=== PATIENT | female | born 1970 | race Caucasian/White ===

== ENCOUNTER 2018-08-28 02:35 | Emergency (ER) | payer MEDICAID, OTHER ==
[~2018-08-28] VITALS: Ht 177.8 cm; Wt 72.6 kg
[~2018-08-28 02:35] MED LIST: OXCA300T4 PO; VENL75TA4 PO
--- NOTE | 2018-08-28 03:00 | NUR ---
PATIENT CAME INTO ER VIA WHEELCHAIR FOR C/O LLE REDNESS,SWELLING,HOT AND PAINFUL AREA X1 WEEK
[2018-08-28] MEDS ORDERED: LORAZEPAM 0.5 MG TABLET PO ONE (03:15)
[2018-08-28] MEDS ORDERED: CEFTRIAXONE 1 G VIAL IM ONE (03:15)
[2018-08-28] MEDS ORDERED: SODIUM BICARBONATE 4.2 % (NEUT) 5 ML VIAL TP ONE (03:15)
[2018-08-28] MEDS ORDERED: SULFAMETH/TRIMETH 800/160 MG TABLET PO ONE (03:15)
[2018-08-28] MEDS ORDERED: LIDOCAINE 1%-EPI 1:100,000 20 ML VIAL TP ONE (03:15)
[2018-08-28] MEDS ORDERED: HYDROMORPHONE 1 MG/1 ML DISP.SYRIN IM ONE (03:15)
[2018-08-28] MEDS ORDERED: LORAZEPAM 1 MG TABLET ONE (03:21)
[2018-08-28] MEDS ORDERED: LIDOCAINE HCL 1% 20 ML VIAL ONE (03:21)
[2018-08-28] MEDS ORDERED: HYDROMORPHONE 2 MG/1 ML DISP.SYRIN ONE (03:21)
[2018-08-28] MEDS ORDERED: SULFAMETH/TRIMETH 800/160 MG TABLET ONE (03:22)
[2018-08-28] MEDS ORDERED: CEFTRIAXONE 1 G VIAL ONE (03:22)
--- NOTE | 2018-08-28 04:15 | NUR ---
DR LOPEZ INTO DO I/D ON LLE
[2018-08-28] MEDS ORDERED: FLUCONAZOLE 100 MG TABLET ONE (04:27)
[2018-08-28] MEDS ORDERED: FLUCONAZOLE 100 MG TABLET PO ONE (04:30)
--- NOTE | 2018-08-28 04:33 | NUR ---
Patient discharged to home in stable conditon WITH FAMILY TAKING PATIENT HOME. Written and verbal after care instructions given. Patient verbalizes understanding of instructions.
[2018-08-28 04:38] VITALS: BP 124/75
== END 2018-08-28 04:39 | disposition home or self-care (01) ==
LOC: ER 02:37
DX: L02.416 Cutaneous abscess of left lower limb (principal); F15.10 Other stimulant abuse, uncomplicated; F11.10 Opioid abuse, uncomplicated; G89.29 Other chronic pain; M54.5 Low back pain; F17.290 Nicotine dependence, other tobacco product, uncomplicated; Z71.6 Tobacco abuse counseling; Z79.899 Other long term (current) drug therapy
CPT/HCPCS: 10060; 96372 ×2; 99284; 99406; J0696; J1170; J3490 ×3; A4663

== ENCOUNTER 2018-08-29 20:48 | Emergency (ER) | payer OTHER ==
[~2018-08-29] VITALS: Ht 177.8 cm; Wt 72.6 kg
--- NOTE | 2018-08-29 21:25 | NUR ---
Patient ambulated with stable gait. AAOx4. Speech is clear, speaks in complete sentences. No neuro deficits. Patient came in for repack of wound in E. Patient was here night/friday morning to have it initially evaluated. Respiratory even and unlabored. Patient in bed at lowest position, side rails upx2, call light within reach. Fall precautions implemented per protocol.
--- NOTE | 2018-08-29 22:14 | NUR ---
Patient given written and verbal discharge instructions. Patient verbalizes understanding of instructions. Patient is ambulatory with stable gait. Refuses offer of half-way placement. Patient given list of available shelters in surrounding area.
== END 2018-08-29 22:16 | disposition home or self-care (01) ==
LOC: ER 20:49
DX: L02.415 Cutaneous abscess of right lower limb (principal); F17.200 Nicotine dependence, unspecified, uncomplicated; F11.10 Opioid abuse, uncomplicated; Z59.0 Homelessness; Z79.899 Other long term (current) drug therapy
CPT/HCPCS: A4663

== ENCOUNTER 2019-01-12 21:14 | Emergency (ER) | payer OTHER ==
[~2019-01-12] VITALS: Ht 180.3 cm; Wt 74.8 kg
--- NOTE | 2019-01-12 21:21 | NUR ---
PT RECEIVED AMBULATORY WITH ANTALGIC GAIT FROM HOME C/O LEFT LEG AND LOWER BACK AND L HIP PAIN FOR 2WKS PT DENIES FALLING DENIES TRAUMA DENIES PREV SURGERY TO THE SITE, +HX OF BACK AND NECK PAIN CHIROPRACTOR VISIT LAST WEEK DID NOT HELP. MARIO DID NOT HELP PT AOX4, ABLE TO SPEAK CLEAR AND COMPLETE SENTENCES, DENIES CARDIORESPIRATORY DISTRESS, DENIES CHANGES IN B/B FUNCTION PT MD RENARD AT BEDSIDE FOR HX AND PHYSICAL. PT SITTING ON BED, KEPT WARM SAFE DRY AND COMFORTABLE
[2019-01-12] MEDS ORDERED: ONDANSETRON 4 MG/2 ML VIAL IM ONE (21:45)
[2019-01-12] MEDS ORDERED: HYDROMORPHONE 1 MG/1 ML DISP.SYRIN IM ONE (21:45)
[2019-01-12] MEDS ORDERED: ONDANSETRON 4 MG/2 ML VIAL ONE (21:51)
[2019-01-12] MEDS ORDERED: HYDROMORPHONE 1 MG/1 ML DISP.SYRIN ONE (21:51)
--- NOTE | 2019-01-12 22:06 | NUR ---
PT REPORTS GREAT IMPROVEMENT AFTER RX MEDS. Patient discharged to home in stable conditon. Written and verbal after care instructions given. Patient verbalizes understanding of instructions. ALL BELONGINGS WITH PT AMBULATORY WITH ANTALGIC GAIT
[2019-01-12 22:08] VITALS: BP 114/78
== END 2019-01-12 22:06 | disposition home or self-care (01) ==
LOC: ER 21:14
DX: M54.42 Lumbago with sciatica, left side (principal); F11.10 Opioid abuse, uncomplicated; F17.200 Nicotine dependence, unspecified, uncomplicated; Z59.0 Homelessness
CPT/HCPCS: 96372; 99283; J1170; J2405; A4663

== ENCOUNTER 2020-01-18 02:17 | Emergency (ER) | payer OTHER ==
[~2020-01-18] VITALS: Ht 177.8 cm; Wt 79.4 kg
--- NOTE | 2020-01-18 02:58 | NUR ---
at bedside for MSE
[2020-01-18] MEDS ORDERED: PROMETHAZINE/CODEINE 5 ML UDC PO ONE (03:00)
--- NOTE | 2020-01-18 03:27 | NUR ---
X-ray tech noted doing x-ray of head at this time
--- NOTE | 2020-01-18 04:05 | NUR ---
Patient noted resting in bed with eyes closed, no facial cues of pain noted, no signs of distress noted
[2020-01-18] MEDS: SULFAMETH/TRIMETH 800/160 MG TABLET PO ONE (04:48)
[2020-01-18] MEDS: HYDROCODONE/APAP 5-325MG TABLET PO ONE (04:48)
[2020-01-18] MEDS ORDERED: SULFAMETH/TRIMETH 800/160 MG TABLET ONE (04:51)
[2020-01-18] MEDS ORDERED: HYDROCODONE/APAP 5-325MG TABLET ONE (04:51)
--- NOTE | 2020-01-18 05:11 | NUR ---
Patient discharged to home in stable condition. Ambulated with steady gait, Rx given, states bf will drive her home. Written and verbal after care instructions given. Instructed to follow up with plastic surgeon. Patient verbalizes understanding of instructions. Stressed follow up or return to ER for worsening s/s
[2020-01-18 05:15] VITALS: BP 165/86
[2020-01-21] MEDS ORDERED: hydrALAZINE HCL 20 MG/1 ML VIAL IV ONE (07:45)
== END 2020-01-18 05:19 | disposition home or self-care (01) ==
LOC: ER 02:26
DX: S00.85XA Superficial foreign body of other part of head, initial encounter (principal); V49.9XXA Car occupant (driver) (passenger) injured in unspecified traffic accident, initial encounter; Y92.89 Other specified places as the place of occurrence of the external cause; Z59.0 Homelessness; F17.200 Nicotine dependence, unspecified, uncomplicated
CPT/HCPCS: 70150; A4663

== ENCOUNTER 2022-05-17 20:31 | Emergency (ER) | END 2022-05-17 21:14 | disposition home or self-care (01) | DX: L01.00 Impetigo, unspecified (principal); F17.200 Nicotine dependence, unspecified, uncomplicated; F31.9 Bipolar disorder, unspecified; Z86.19 Personal history of other infectious and parasitic diseases ==

== ENCOUNTER 2023-09-19 03:52 | Emergency (ER) | payer OTHER ==
[~2023-09-19] VITALS: Ht 177.8 cm; Wt 83.9 kg
[~2023-09-19 03:52] MED LIST changes: -OXCA300T4 PO; +SULF1TAB48 PO; -VENL75TA4 PO
[2023-09-19] MEDS ORDERED: KETOROLAC TROMETHAMINE 30 MG INJ ONE (04:47)
[2023-09-19] MEDS ORDERED: CYCLOBENZAPRINE HCL 10 MG TABLET ONE (04:47)
[2023-09-19] MEDS: CYCLOBENZAPRINE HCL 10 MG TABLET PO ONE (04:50)
[2023-09-19] MEDS: KETOROLAC TROMETHAMINE 30 MG INJ IM ONE (04:50)
[2023-09-19] MEDS ORDERED: NAPR-1009 PO (05:56)
[2023-09-19] MEDS ORDERED: CYCL10TA9 PO (05:56)
[2023-09-19 06:12] VITALS: BP 147/80; TEMP 98.2; O2SAT 98
== END 2023-09-19 06:00 | disposition home or self-care (01) ==
LOC: ER 04:00
DX: G89.29 Other chronic pain (principal); M54.50 Low back pain, unspecified; M54.2 Cervicalgia; M25.552 Pain in left hip; F17.200 Nicotine dependence, unspecified, uncomplicated; R03.0 Elevated blood-pressure reading, without diagnosis of hypertension; Z79.899 Other long term (current) drug therapy
CPT/HCPCS: 99283; 96372; J1885; A4606; A4663

== ENCOUNTER 2024-08-08 10:07 | Emergency (ER) | payer OTHER ==
[~2024-08-08] VITALS: Ht 177.8 cm; Wt 79.4 kg
[~2024-08-08 10:07] MED LIST changes: +CYCL10TA9 PO; +NAPR-1009 PO
[2024-08-08] MEDS ORDERED: CEFAZOLIN 1 G VIAL ONE (11:11)
[2024-08-08 11:13] LABS: CALCIUM 9.1 mg/dL (8.5-10.1); CREATININE 0.9 mg/dL (0.6-1.3); POTASSIUM 4.1 mmol/L (3.5-5.1)
[2024-08-08 11:19] LABS: ALBUMIN 3.3 g/dL (3.4-5.0); BILIRUBIN,DIRECT 0.2 mg/dL (0.0-0.2); BILIRUBIN,TOTAL 0.4 mg/dL (0.2-1.0); TOTAL PROTEIN, SERUM 8.1 g/dL (6.4-8.2)
[2024-08-08] MEDS: CEFAZOLIN 1 G in IV DEXTROSE 5% 50 ML IV ONE (11:19)
[2024-08-08 11:27] LABS: BASOPHILS % (AUTO) 0.4 % (0.0-2.0); DIFFERENTIAL COMMENT 0; EOSINOPHILS # (AUTO) 0.1 K/uL (0.0-0.7); EOSINOPHILS % (AUTO) 1.2 % (0.0-7.0); HEMATOCRIT 37.9 % (31.2-41.9); HEMOGLOBIN 11.2 g/dL (10.9-14.3); LYMPHOCYTES # (AUTO) 1.9 K/uL (0.8-4.8); MEAN CORPUSCULAR HGB CONC 30 g/dL (32.3-35.6); MEAN CORPUSCULAR VOLUME 84.6 fL (75.5-95.3); MONOCYTES # (AUTO) 0.4 K/uL (0.1-1.30); MONOCYTES % (AUTO) 7.2 % (0.0-11.0); NEUTROPHILS # (AUTO) 3.8 K/uL (1.8-8.9); NEUTROPHILS % (AUTO) 61.2 % (38.5-71.5); PLATELET COUNT (AUTO) 237 K/uL (179-408); RED BLOOD CELL COUNT(AUTO) 4.48 MIL/uL (3.63-4.92); RED CELL DISTRIBUTION WIDTH 15.2 % (12.3-17.7); WHITE BLOOD COUNT (AUTO) 6.2 K/uL (3.8-11.8)
[2024-08-08 12:33] LABS: *BLOOD, URINE 1+ (NEGATIVE); *CLARITY,URINE CLEAR (CLEAR); *COLOR,URINE YELLOW (YELLOW); *KETONES,URINE NEGATIVE (NEGATIVE); *PROTEIN,URINE 1+ (NEGATIVE); *UROBILINOGEN,URINE 0.2 E.U./dl (NORMAL); LEUKOCYTE ESTERASE ,URINE TRACE (NEGATIVE); NITRITE, URINE NEGATIVE (NEGATIVE); PH,URINE 5.5 (5.0-8.0); UGLUCOSE NEGATIVE (NEGATIVE)
[2024-08-08 12:35] LABS: *BILIRUBIN,URIN 1+ (NEGATIVE)
[2024-08-08] MEDS ORDERED: CEFD300C3 PO (12:37)
[2024-08-08] MEDS ORDERED: ACET1TAB23 PO (12:37)
[2024-08-08 12:48] LABS: BACTERIA,URINE MODERATE /HPF (NONE SEEN); SQUAMOUS EPITHELIAL CELL,UR MODERATE /HPF (NONE SEEN); WBC,URINE 50-80 /HPF (0-3)
[2024-08-08 13:12] VITALS: BP 144/86; TEMP 97.8; O2SAT 100
== END 2024-08-08 12:50 | disposition home or self-care (01) ==
LOC: ER 10:13
DX: L03.116 Cellulitis of left lower limb (principal); F17.200 Nicotine dependence, unspecified, uncomplicated; Z88.7 Allergy status to serum and vaccine; Z87.19 Personal history of other diseases of the digestive system; Z87.39 Personal history of other diseases of the musculoskeletal system and connective tissue
CPT/HCPCS: 99284; 96365; 80076; 80048; 81001; 85025; 87086; 36415; J0690; J7040; A4606; A4663

== ENCOUNTER 2025-03-04 15:55 | Emergency (ER) | payer OTHER ==
[~2025-03-04] VITALS: Ht 177.8 cm; Wt 72.6 kg
[~2025-03-04 15:55] MED LIST changes: +ACET1TAB23 PO; +CEFD300C3 PO; -CYCL10TA9 PO; -NAPR-1009 PO; -SULF1TAB48 PO
[2025-03-04 16:02] VITALS: BP 136/75
[2025-03-04] MEDS ORDERED: CARI350T PO (16:51)
[2025-03-04] MEDS ORDERED: HYDR-3972 PO (16:51)
[2025-03-04 17:16] VITALS: BP 136/75; O2SAT 94
== END 2025-03-04 17:17 | disposition home or self-care (01) ==
LOC: ER 16:13
DX: M54.50 Low back pain, unspecified (principal); F17.200 Nicotine dependence, unspecified, uncomplicated; F31.9 Bipolar disorder, unspecified; G89.29 Other chronic pain; Z86.19 Personal history of other infectious and parasitic diseases; Z88.7 Allergy status to serum and vaccine
CPT/HCPCS: A4606; A4663